=== PATIENT | male | born 1970 | race Caucasian/White ===

== ENCOUNTER 2019-10-29 22:43 | Emergency (ER) | payer OTHER, BC ==
[~2019-10-29] VITALS: Ht 175.3 cm; Wt 107.0 kg
[~2019-10-29 22:43] MED LIST: ALBU90OI61 INH; Cyclobenzaprine5 MG PO; IRBE150 PO; Levothyroxine200 MCG PO; Norco 5-325 Ta1 EACH PO; Novolog100 UNIT/2; Prednisone20 MG PO; SIMV10 PO; TRIHYD253B PO; Zofran Odt4 MG SL
[2019-10-29] MEDS ORDERED: Voltaren100 GM TOP (23:00)
== END 2019-10-29 23:30 | disposition home or self-care (01) ==
LOC: ER 22:43
DX: S29.012A Strain of muscle and tendon of back wall of thorax, initial encounter (principal); I10 Essential (primary) hypertension; E11.9 Type 2 diabetes mellitus without complications; Z88.0 Allergy status to penicillin; Z79.4 Long term (current) use of insulin; Z79.899 Other long term (current) drug therapy; X58.XXXA Exposure to other specified factors, initial encounter; Y99.0 Civilian activity done for income or pay
CPT/HCPCS: 96372; 99283-25; A9270; A9270-GY; J1885

== ENCOUNTER 2025-04-19 19:36 | Emergency (ER) | payer BC ==
[~2025-04-19] VITALS: Ht 175.3 cm; Wt 104.3 kg
[~2025-04-19 19:36] MED LIST changes: +Voltaren100 GM TOP
[2025-04-19] MEDS ORDERED: Ketorolac Tromethamine 15mg Vial IV ONE (19:50)
[2025-04-19] MEDS ORDERED: LEVOTHYROXINE150 MC9 PO (19:54)
[2025-04-19] MEDS ORDERED: Simvastatin10 MG PO (19:56)
[2025-04-19] MEDS ORDERED: METF500 PO (19:56)
[2025-04-19] MEDS ORDERED: DYAZIDE 37.5-21 EACH PO (19:57)
[2025-04-19] MEDS ORDERED: OZEMPIC2 MG/0.75 SC (19:58)
[2025-04-19] MEDS ORDERED: COQ1050 MG PO (19:58)
[2025-04-19] MEDS ORDERED: TIMO.25OPS LEFTEYE (19:59)
[2025-04-19] MEDS ORDERED: LATA.005SO BOTHEYES (19:59)
[2025-04-19 20:03] LABS: BASOPHILS ABSOLUTE AUTO 0.10 K/mm3 (0.00-0.23); BASOPHILS PERCENT AUTO 1 % (0-2); EOSINOPHILS ABSOLUTE AUTO 0.19 K/mm3 (0.00-0.68); EOSINOPHILS PERCENT AUTO 3 % (0-6); Hematocrit 44.4 % (37.0-53.0); Hemoglobin 15.5 g/dL (13.5-17.5); IMMATURE GRAN ABSOLUTE AUTO 0.02 K/mm3 (0.00-0.10); IMMATURE GRAN PERCENT AUTO 0 % (0-1); LYMPHOCYTES ABSOLUTE AUTO 1.82 K/mm3 (0.84-5.20); LYMPHOCYTES PERCENT AUTO 25 % (21-46); MONOCYTES ABSOLUTE AUTO 0.75 K/mm3 (0.16-1.47); MONOCYTES PERCENT AUTO 10 % (4-13); Mean Corpuscular HGB Conc 34.9 g/dL (31.5-36.5); Mean Corpuscular Volume 91 fL (80-100); NEUTROPHILS ABSOLUTE AUTO 4.30 K/mm3 (1.96-9.15); NEUTROPHILS PERCENT AUTO 60 % (41-73); NRBC ABSOLUTE 0.00 K/mm3 (0.00-0.02); NRBC Auto 0.0 /100 WBC (0.0-0.2); Platelet Count 240 K/mm3 (150-400); RDW Coefficient Variation 12.3 % (11.7-14.2); RDW Standard Deviation 40.7 fL (35.1-46.3)
[2025-04-19 20:27] LABS: Source, Urine Clean Catch
[2025-04-19 20:28] LABS: Alanine Aminotransfer (ALT/SGP 53.0 U/L (12-78); Albumin, Blood 4.0 g/dL (3.4-5.0); Albumin/Globulin Ratio 1.2 (0.8-1.8); Anion Gap 11.0 mmol/L (3-11); Aspartate Aminotrans (AST/SGOT 34.0 U/L (12-37); Bilirubin, Total 0.7 mg/dL (0.1-1.0); Blood Urea Nitrogen 13.0 mg/dL (8-24); CO2, Blood 27.0 mmol/L (21-32); Calcium, Blood 9.1 mg/dL (8.5-10.1); Chloride, Blood 103.0 mmol/L (98-108); Creatinine, Blood 1.16 mg/dL (0.60-1.20); Globulin, Blood 3.3 g/dL (2.2-4.0); Glucose, Blood 112.0 mg/dL (70-99); Potassium, Blood 3.8 mmol/L (3.5-5.5); Sodium, Blood 137.0 mmol/L (136-145); Total Protein, Blood 7.3 g/dL (6.4-8.2)
[2025-04-19 20:31] LABS: Bilirubin, Urine Neg (Neg); Color, Urine Yellow (P-Yellow); Glucose Qualitative, Urine Neg (Neg); Ketones, Urine Neg (Neg); Leukocyte Esterase, Urine Neg (Neg); Protein, Urine 1+ (Neg); Specific Gravity, Urine 1.010 (1.003-1.022); Urobilinogen, Urine NORM (Normal)
[2025-04-19 20:43] LABS: White Blood Cells, Urine 0-2 /hpf (0-5)
[2025-04-19] MEDS ORDERED: RX Prepack 6 Tabs Oxycodone 5mg UD ONE (21:20)
[2025-04-19] MEDS ORDERED: ONDA4ODT MM (21:21)
[2025-04-19] MEDS ORDERED: KETO10 PO (21:21)
[2025-04-19] MEDS ORDERED: Roxicodone5 MG PO (21:21)
[2025-04-19 21:30] VITALS: BP 153/80
== END 2025-04-19 21:34 | disposition home or self-care (01) ==
LOC: ER 19:36
PROVIDERS: Emergency Medicine
DX: N13.2 Hydronephrosis with renal and ureteral calculous obstruction (principal); I10 Essential (primary) hypertension; E11.9 Type 2 diabetes mellitus without complications; Z79.2 Long term (current) use of antibiotics; Z88.0 Allergy status to penicillin; Z88.8 Allergy status to other drugs, medicaments and biological substances; Z79.899 Other long term (current) drug therapy
CPT/HCPCS: 74176; 80053; 81001; 85025; 96374; 99284-25; A9270; J1885

== ENCOUNTER → 2025-05-28 | Outpatient (CLI) | payer BC ==
[~2025-05-28] MED LIST changes: +COQ1050 MG PO; +DYAZIDE 37.5-21 EACH PO; +KETO10 PO; +LATA.005SO BOTHEYES; +LEVOTHYROXINE150 MC9 PO; +METF500 PO; +ONDA4ODT MM; +OZEMPIC2 MG/0.75 SC; +Roxicodone5 MG PO; +Simvastatin10 MG PO; +TIMO.25OPS LEFTEYE
[2025-06-03 14:21] LABS: CALCULI MASS 74 mg
== END ==
LOC: LAB 15:39 → LAB SHORT 15:39
PROVIDERS: Urology
DX: N20.1 Calculus of ureter (principal)
CPT/HCPCS: 82365